=== PATIENT | male | born 1985 | race Caucasian/White ===

== ENCOUNTER 2016-12-27 03:26 | Emergency (ER) | payer SELFPAY ==
[~2016-12-27] VITALS: Ht 188 cm; Wt 121.2 kg
[~2016-12-27 03:26] MED LIST: AMOXICILLIN875 MG PO; BACTRIM,SEPT1 TABLET PO; EAR WAX DROPS15 ML BOTH EARS; FLEXERIL10 MG PO; FLONASE16 G1 BOTH NARES; KEFLEX500 MG PO; MOTRIN IB200 MG PO; MOTRIN600 MG PO; MOTRIN800 MG PO; NAPROSYN500 MG PO; NAPROXEN500 MG PO; OMEPRAZOLE20 MG PO; PEN-VEE K,VEET500 MG PO; PREDNISONE20 MG PO; ZOFRAN4 MG PO; ZYRTEC10 M1 PO
[2016-12-27] MEDS ORDERED: NORCO 5/3251 TABLET PO (04:52)
[2016-12-27] MEDS ORDERED: PREPARATION H C51 GM PR (04:52)
[2016-12-27] MEDS ORDERED: DULCOLAX5 MG PO (04:52)
[2016-12-27 05:24] VITALS: BP 148/90
== END 2016-12-27 05:24 | disposition home or self-care (01) ==
LOC: EME 03:26
DX: K64.9 Unspecified hemorrhoids (principal); F17.200 Nicotine dependence, unspecified, uncomplicated
CPT/HCPCS: 99281; 99284

== ENCOUNTER 2017-08-04 21:28 | Emergency (ER) | payer OTHER ==
[~2017-08-04] VITALS: Ht 188 cm; Wt 116.4 kg
[~2017-08-04 21:28] MED LIST changes: +DULCOLAX5 MG PO; +NORCO 5/3251 TABLET PO; +PREPARATION H C51 GM PR
[2017-08-04 22:00] LABS: APPEARANCE CLEAR ((CLEAR)); BILIRUBIN NEGATIVE; BLOOD NEGATIVE; COLOR YELLOW ((YELLOW)); GLUCOSE (STRIP) NEGATIVE; KETONES NEGATIVE; LEUKOCYTES NEGATIVE; NITRITE NEGATIVE; PROTEIN (STRIP) NEGATIVE; SPECIFIC GRAVITY 1.031 (1.000-1.030); UCUL ADDED? NO
[2017-08-05 01:49] VITALS: BP 134/78
== END 2017-08-05 01:49 | disposition home or self-care (01) ==
LOC: EME 21:28
DX: N48.89 Other specified disorders of penis (principal); F17.200 Nicotine dependence, unspecified, uncomplicated
CPT/HCPCS: 81003; 99281; 99284; J0696

== ENCOUNTER 2017-10-22 11:16 | Emergency (ER) | payer OTHER ==
[~2017-10-22] VITALS: Ht 188 cm; Wt 117.7 kg
[2017-10-22 11:52] LABS: HEMATOCRIT 44.6 % (38.0-50.0); HEMOGLOBIN 15.3 G/DL (12.5-16.6); MCH 29.9 PG (29.0-34.0); MCHC 34.3 G/DL (30.0-36.0); MCV 87.1 FL (86-99); PLATELET COUNT 350 K/uL (156-360); RBC DIS.WIDTH-CV 12.4 % (11.8-14.6); RBC DIS.WIDTH-SD 39.3 % (39-53); RED BLOOD COUNT 5.12 M/uL (4.00-5.50)
[2017-10-22 12:06] LABS: CHLORIDE 107 mEq/L (99-109); POTASSIUM 4.1 mEq/L (3.7-5.4); SODIUM 141 mEq/L (136-147)
[2017-10-22 12:08] LABS: GLUCOSE 85 mg/dL (70-99)
[2017-10-22 12:12] LABS: CREATININE 0.8 mg/dL (0.6-1.3); GFR ESTIMATE (CALCULATED) > 59 mL/min/ (58.99-99999)
[2017-10-22 12:13] LABS: UREA NITROGEN (BUN) 10 mg/dL (9-23)
[2017-10-22 12:14] LABS: TROP-I INTERPRETATION NEGATIVE; TROPONIN-I < 0.01 ng/mL (0.0-0.30)
[2017-10-22 14:12] LABS: TROP-I INTERPRETATION NEGATIVE; TROPONIN-I < 0.01 ng/mL (0.0-0.30)
[2017-10-22] MEDS ORDERED: FLEXERIL10 MG PO (14:54)
[2017-10-22] MEDS ORDERED: NAPROSYN500 MG PO (14:54)
[2017-10-22 15:21] VITALS: BP 138/98
== END 2017-10-22 15:21 | disposition home or self-care (01) ==
LOC: EME 11:16
PROVIDERS: Nurse Practitioner Family
DX: S29.011A Strain of muscle and tendon of front wall of thorax, initial encounter (principal); X50.0XXA Overexertion from strenuous movement or load, initial encounter; Y99.0 Civilian activity done for income or pay; I10 Essential (primary) hypertension; F17.200 Nicotine dependence, unspecified, uncomplicated
CPT/HCPCS: 70450; 71046; 80048; 84484; 85027; 93005; 99281; 99284

== ENCOUNTER 2017-11-21 13:33 | Emergency (ER) | payer OTHER ==
[~2017-11-21] VITALS: Ht 188 cm; Wt 116.5 kg
[2017-11-21 15:57] VITALS: BP 142/95
== END 2017-11-21 15:55 | disposition home or self-care (01) ==
LOC: EME 13:33
DX: J06.9 Acute upper respiratory infection, unspecified (principal); F17.200 Nicotine dependence, unspecified, uncomplicated
CPT/HCPCS: 99281; 99284

== ENCOUNTER 2017-12-29 22:09 | Emergency (ER) | payer OTHER ==
[~2017-12-29] VITALS: Ht 188 cm; Wt 115.5 kg
[2017-12-29 22:47] LABS: HEMATOCRIT 45.8 % (38.0-50.0); HEMOGLOBIN 16.1 G/DL (12.5-16.6); MCH 30.3 PG (29.0-34.0); MCHC 35.2 G/DL (30.0-36.0); MCV 86.1 FL (86-99); PLATELET COUNT 354 K/uL (156-360); RBC DIS.WIDTH-CV 11.9 % (11.8-14.6); RBC DIS.WIDTH-SD 37.5 % (39-53); RED BLOOD COUNT 5.32 M/uL (4.00-5.50); WHITE BLOOD COUNT 10.5 K/uL (4.1-10.2)
[2017-12-29 22:59] LABS: CHLORIDE 105 mEq/L (99-109); POTASSIUM 3.6 mEq/L (3.7-5.4); SODIUM 143 mEq/L (136-147)
[2017-12-29 23:00] LABS: GLUCOSE 73 mg/dL (70-99)
[2017-12-29 23:04] LABS: CREATININE 0.9 mg/dL (0.6-1.3); GFR ESTIMATE (CALCULATED) > 59 mL/min/ (58.99-99999)
[2017-12-29 23:05] LABS: UREA NITROGEN (BUN) 6 mg/dL (9-23)
[2017-12-29 23:08] LABS: TROP-I INTERPRETATION NEGATIVE; TROPONIN-I < 0.01 ng/mL (0.0-0.30)
[2017-12-30 01:03] LABS: SALICYLATE < 5.0 MG/DL (15-30)
[2017-12-30 02:08] LABS: ERTH.SED.RATE 3 MM/HR (0-15)
[2017-12-30] MEDS ORDERED: FIORICET 50-301 EAC1 PO (03:08)
[2017-12-30] MEDS ORDERED: REGLAN10 MG PO (03:09)
[2017-12-30] MEDS ORDERED: MOTRIN800 MG PO (03:09)
[2017-12-30] MEDS ORDERED: FLONASE16 G1 BOTH NARES (03:10)
[2017-12-30] MEDS ORDERED: MUCINEX D ER T1 EACH PO (03:10)
[2017-12-30 03:23] VITALS: BP 147/89
== END 2017-12-30 03:25 | disposition home or self-care (01) ==
LOC: EME 22:09
DX: G44.209 Tension-type headache, unspecified, not intractable (principal); H65.93 Unspecified nonsuppurative otitis media, bilateral; H69.80 Other specified disorders of Eustachian tube, unspecified ear; R03.0 Elevated blood-pressure reading, without diagnosis of hypertension; G43.009 Migraine without aura, not intractable, without status migrainosus; H93.13 Tinnitus, bilateral; R07.9 Chest pain, unspecified; F17.210 Nicotine dependence, cigarettes, uncomplicated; Z71.6 Tobacco abuse counseling
CPT/HCPCS: 70450; 80048; 84484; 85027; 85651; 86618; 93005; 99281; 99283; G0480

== ENCOUNTER 2018-02-11 23:08 | Emergency (ER) | payer OTHER ==
[~2018-02-11] VITALS: Ht 188 cm; Wt 116.8 kg
[~2018-02-11 23:08] MED LIST changes: +FIORICET 50-301 EAC1 PO; +MUCINEX D ER T1 EACH PO; +REGLAN10 MG PO
[2018-02-11 23:47] LABS: HEMATOCRIT 45.5 % (38.0-50.0); HEMOGLOBIN 15.9 G/DL (12.5-16.6); MCH 30.3 PG (29.0-34.0); MCHC 34.9 G/DL (30.0-36.0); MCV 86.7 FL (86-99); PLATELET COUNT 352 K/uL (156-360); RBC DIS.WIDTH-CV 12.1 % (11.8-14.6); RBC DIS.WIDTH-SD 38.5 % (39-53); RED BLOOD COUNT 5.25 M/uL (4.00-5.50); WHITE BLOOD COUNT 10.1 K/uL (4.1-10.2)
[2018-02-12] LABS: CHLORIDE 107 mEq/L (99-109); POTASSIUM 3.4 mEq/L (3.7-5.4); SODIUM 142 mEq/L (136-147)
[2018-02-12 00:01] LABS: GLUCOSE 106 mg/dL (70-99)
[2018-02-12 00:05] LABS: CREATININE 0.9 mg/dL (0.6-1.3); GFR ESTIMATE (CALCULATED) > 59 mL/min/ (58.99-99999)
[2018-02-12 00:06] LABS: UREA NITROGEN (BUN) 15 mg/dL (9-23)
[2018-02-12 00:11] LABS: TROP-I INTERPRETATION NEGATIVE; TROPONIN-I < 0.01 ng/mL (0.0-0.30)
[2018-02-12 00:16] LABS: D-DIMER ELISA < 150.00 ng/mLDDU (<230)
[2018-02-12] MEDS ORDERED: INDOCIN50 MG PO (03:43)
[2018-02-12 03:51] LABS: TROP-I INTERPRETATION NEGATIVE; TROPONIN-I < 0.01 ng/mL (0.0-0.30)
[2018-02-12 04:24] VITALS: BP 122/92
== END 2018-02-12 04:25 | disposition home or self-care (01) ==
LOC: EME 23:08
PROVIDERS: Physician Assistant
DX: R07.89 Other chest pain (principal); H93.19 Tinnitus, unspecified ear; R05 Cough; R06.02 Shortness of breath; R00.0 Tachycardia, unspecified; F17.200 Nicotine dependence, unspecified, uncomplicated
CPT/HCPCS: 71046; 80048; 84484; 85027; 85379; 93005; 94640; 99281; 99285